=== PATIENT | female | born 1965 | race Caucasian/White ===

== ENCOUNTER 2021-05-08 04:40 | Day surgery (SDC) | payer BC ==
[2021-05-04 11:54] VITALS: BMI 26.2
[2021-05-08 09:40] VITALS: TEMP 97.8
[2021-05-08 10:26] VITALS: BP 114/72; PULSE 85
== END 2021-05-08 10:25 | disposition home or self-care (01) ==
LOC: JASU-ENDO 04:40
PROVIDERS: ATTEND Internal Medicine Gastroenterology
PROC: 0DBP8ZX Excision of Rectum, Via Natural or Artificial Opening Endoscopic, Diagnostic (ICD-10-PCS; principal; 2021-05-08 09:00)
DX: Z12.11 Encounter for screening for malignant neoplasm of colon (principal); D12.8 Benign neoplasm of rectum; D17.5 Benign lipomatous neoplasm of intra-abdominal organs; K64.8 Other hemorrhoids; Z86.010 Personal history of colon polyps; Z83.71 Family history of colonic polyps
CPT/HCPCS: 88305-TC

== ENCOUNTER 2021-06-14 01:56 | Emergency (ER) | payer BC ==
[2021-06-14 02:05] VITALS: BP 166/90; PULSE 98; TEMP 97.9; BMI 26.3
== END 2021-06-14 02:12 | disposition home or self-care (01) ==
LOC: FER 01:56
DX: H00.012 Hordeolum externum right lower eyelid (principal)
CPT/HCPCS: 99283-25